=== PATIENT | female | born 1995 | race Caucasian/White ===

== ENCOUNTER 2021-01-21 11:08 | Emergency (ER) | payer OTHER, SELFPAY ==
[2021-01-21 11:25] VITALS: BP 116/64; PULSE 92; RESP 16; TEMP 37.1; O2SAT 100
--- NOTE | 2021-01-21 11:38 | ECG_ITS ---
Measurements Intervals [place] Rate: 67 P: 63 MD: 135 QRS: 93 QRSD: 88 T: 75 QT: 352 QTc: 374 Interpretive Statements SINUS RHYTHM RIGHT AXIS DEVIATION MINIMAL Q WAVES- INF/LAT LEADS NONSPECIFIC T-WAVE ABNORMALITY- HIGH LATERAL LEADS BASELINE ARTIFACT- I, AVR BORDERLINE ECG Electronically Signed On 01-21-2021 12:17:17 CDT by Eren Thorne D.O.
[2021-01-21 11:55] LABS: Basophils Absolute Auto 0.08 K/mm3 (0.00-0.10); Eosinophils Absolute Auto 0.27 K/mm3 (0.02-0.50); Eosinophils Percent Auto 3.3 % (1.0-6.0); Hematocrit 41.6 % (35.0-49.0); Hemoglobin 13.9 g/dL (12.0-15.0); Immature Granulocyte Absolute 0.02 K/mm3 (0.00-0.00); Immature Granulocyte Percent A 0.2 % (0.0-0.0); Lymphocytes Absolute Auto 2.06 K/mm3 (1.10-4.50); Lymphocytes Percent Auto 24.8 % (18.0-42.0); Mean Corpuscular HGB Conc 33.4 g/dL (32.0-36.0); Mean Corpuscular Hemoglobin 30.8 pg (27.0-31.0); Mean Corpuscular Volume 92.2 fL (78.0-102.0); Mean Platelet Volume 9.9 fl (9.2-11.8); Monocytes Absolute Auto 0.54 K/mm3 (0.10-0.90); Monocytes Percent Auto 6.5 % (2.0-11.0); Neutrophils Absolute Auto 5.3 K/mm3 (1.7-7.2); Neutrophils Percent Auto 64.2 % (50.0-70.0); Platelet Count Result 407 K/mm3 (150-420); Red Blood Count 4.51 M/mm3 (4.20-5.40); Red Cell Distribution Width 11.9 % (11.6-14.4); White Blood Count 8.3 K/mm3 (4.8-10.8)
[2021-01-21 12:21] LABS: Alanine Aminotransferase 22 U/L (14-59); Albumin Level 3.7 g/dL (3.4-5.0); Alkaline Phosphatase 63 U/L (46-116); Anion Gap 10 mmol/L (8-16); Aspartate Amino Transferase 13 U/L (15-37); Bilirubin,Total 0.3 mg/dL (0.00-1.00); Blood Urea Nitrogen 16 mg/dL (7-18); Carbon Dioxide 27 mmol/L (21-32); Chloride 102 mmol/L (98-108); Estimated CRCL calculation 94 ml/min; Estimated Glomerular Filt Rate > 60; Glucose 119 mg/dL (70-99); Magnesium 1.7 mg/dL (1.8-2.4); Osmolality Calculated 290 mOsm/kg (285-295); Potassium 3.9 mmol/L (3.5-5.1); Sodium 139 mmol/L (136-145); Thyroid Stimulating Hormone 1.37 uIU/mL (0.36-3.74); Total Protein 7.4 g/dL (6.4-8.2)
--- NOTE | 2021-01-21 12:32 | ED.ARRPALP ---
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 Patient has been having these palpitations on and off for weeks. complaint: palpitations Onset (ago): week(s) Duration: intermittent Severity: mild Context: occurred during rest Associated symptoms: denies other symptoms Related Data Home Medications Medication Instructions Recorded Confirmed No Home Medications 01/21/21 01/21/21 Allergies Allergy/AdvReac Type Severity Reaction Status Date / Time No Known Allergies Allergy Unknown Verified 11/25/16 11:25 Review of Systems Review of Systems: All systems reviewed & are unremarkable except as noted in HPI and below PMFSH Past Medical History Medical History Anxiety Family History Family History Other Depression Family history of mental disorder Social History Social History Smoking status: Never smoker Alcohol intake: never Exam Const: General: healthy appearing, no acute distress and alert Orientation/consciousness: patient oriented x3 HENMT: Head: normal to inspection Eyes: Conjunctivae: conjunctivae normal Pupils: Equal, round and reactive pupils present EOM: EOMs intact bilaterally Direct Ophthalmoscopy: no photophobia Neck: Neck: normal visual inspection, no lymphadenopathy and no meningeal signs Chest: Chest palpation & inspection: normal inspection of the chest Resp: Effort & Inspection: normal respiratory effort Auscultation: clear to auscultation bilaterally Cardio: Rate: regular rate Rhythm: regular rhythm GI: Auscultation: normal bowel sounds : General: Yes no CVA tenderness Back/Spine/Pelvis: Back: no CVA tenderness Skin: General skin exam: normal color Rashes: no rashes Neuro: General: patient oriented x3 Extrem: General: normal to inspection and no pedal edema Psych: Appearance: grossly normal Mental Status: mental status grossly normal Affect: normal affect Course Course Emergency Course: reassessment of patient, patient currently doing well does not currently feel any palpitations no chest pain no shortness of breath reviewed labs an EKG with patient, remarkable is that her magnesium is mildly decreased at 1.7 will give her dose of magnesium prior to discharge and advised patient to take magnesium [id number] and follow-up with her primary care doctor if symptoms persist or worsen. Vital Signs Vital signs: Vital Signs Temperature 37.1 C 01/21/21 11:25 Pulse Rate 92 01/21/21 11:25 Respiratory Rate 16 01/21/21 11:25 Blood Pressure 116/64 01/21/21 11:25 Pulse Oximetry 100 01/21/21 11:25 Temperature 37.1 C 01/21/21 11:25 Pulse Rate 92 01/21/21 11:25 Respiratory Rate 16 01/21/21 11:25 Blood Pressure 116/64 01/21/21 11:25 Pulse Oximetry 100 01/21/21 11:25 MDM - Arrhythmia/Palpitations Lab Data Result diagrams: 01/21/21 11:49 01/21/21 11:49 Labs: Lab Results 01/21/21 01/21/21 01/21/21 Range/Units 11:49 11:49 11:49 WBC 8.3 (4.8-10.8) K/mm3 RBC 4.51 (4.20-5.40) M/mm3 Hgb 13.9 (12.0-15.0) g/dL Hct 41.6 (35.0-49.0) % MCV 92.2 (78.0-102.0) fL MCH 30.8 (27.0-31.0) pg MCHC 33.4 (32.0-36.0) g/dL RDW 11.9 (11.6-14.4) % Plt Count 407 (150-420) K/mm3 MPV 9.9 (9.2-11.8) fl Immature Gran % (Auto) 0.2 H (0.0-0.0) % Neut % (Auto
[2021-01-21 12:49] VITALS: BP 112/71; PULSE 76; RESP 16; O2SAT 97
[2021-01-21] MEDS: MAGNESIUM OXIDE 400 MG TABLET PO (12:49)
== END 2021-01-21 12:52 | disposition home or self-care (01) ==
PROVIDERS: Emergency Provider Emergency Medicine
DX: R00.2 Palpitations (principal)
CPT/HCPCS: 36415; 80053; 83735; 84443; 85025; 93005; 99282; 99283; A9270